=== PATIENT | female | born 1945 | race Caucasian/White ===

== ENCOUNTER 2016-09-12 13:28 | Emergency (ER) | payer MEDICARE, OTHER ==
[2016-09-12 14:38] LABS: BASOPHILS 0.1 %; BASOPHILS ABSOLUTE 0.01 10/3/uL (0.0-0.16); EOSINOPHILS 0.1 %; EOSINOPHILS ABSOLUTE 0.01 10/3/uL (0.0-0.53); ER CBC TAT 0 Hrs 11 Mins; HEMATOCRIT 35.7 % (36.0-48.0); HEMOGLOBIN 12.5 g/dL (12.0-16.0); IMMATURE GRANULOCYTES 0.1 %; IMMATURE GRANULOCYTES ABSOLUTE 0.01 10/3/uL (0.0-0.11); LYMPHOCYTES 12.9 %; LYMPHOCYTES ABSOLUTE 1.07 10/3/uL (0.67-4.30); MEAN CORPUSCULAR HEMOGLOB 32.6 pg (26.0-34.0); MEAN PLATELET VOLUME 10.4 fL (9.2-13.0); MONOCYTES 6.7 %; MONOCYTES ABSOLUTE 0.56 10/3/uL (0.21-1.20); NEUTROPHILS 80.1 %; NEUTROPHILS ABSOLUTE 6.65 10/3/uL (2.02-8.40); PLATELET COUNT 199 10/3/uL (150-400); RBC DISTRIBUTION WIDTH 12.7 % (12.0-16.0); RED CELL COUNT 3.83 10/6/uL (4.0-5.6); WHITE BLOOD CELLS 8.3 10/3/uL (4.5-10.5)
[2016-09-12 14:41] LABS: MANUAL DIFF NO %; MEAN CORPUSCULAR VOLUME 93.2 fL (80-100)
[2016-09-12 14:50] LABS: PROTIME (NOT ORD) 13.2 SEC (12.0-14.5)
[2016-09-12 15:01] LABS: A/G RATIO 0.8 (0.7-1.9); ALBUMIN 3.5 G/DL (3.5-5.0); ALKALINE PHOSPHATASE 126 U/L (45-117); BUN (BLOOD UREA NITROGEN) 39 MG/DL (6-23); CALCIUM, SERUM 10.1 MG/DL (8.5-10.4); CHLORIDE, SERUM 99 MMOL/L (96-112); CO2 (CARBON DIOXIDE) 30 MMOL/L (24-34); CREATININE 1.02 MG/DL (0.55-1.02); FREE T4 1.98 NG/DL (0.76-1.46); GFR AFRICAN AMERICAN 64 ML/MIN (>=60); GFR NON AFRICAN AMERICAN 55 ML/MIN (>=60); GLOBULIN 4.5 G/DL (2.5-4.1); GLUCOSE, SERUM 107 MG/DL (60-99); SGOT(AST) 31 U/L (5-40); SGPT(ALT) 39 U/L (5-65); SODIUM, SERUM 139 MMOL/L (135-148); TOTAL BILIRUBIN 0.3 MG/DL (0-1.2); ULTRASENSITIVE TSH 0.006 MCIU/ML (0.358-3.740)
[2016-09-12 15:08] LABS: POTASSIUM, SERUM 4.4 MMOL/L (3.5-5.3)
[2016-09-12 15:38] LABS: SEGMENTED NEUTROPHIL (0) 83 %; TOTAL NUCLEATED CELLS 100
[2016-09-12 15:39] LABS: ER DIFF TAT 1 Hrs 11 Mins; LYMPHOCYTES 8 %; LYMPHOCYTES ABSOLUTE (CALC) 0.66 10/3/uL (0.67-4.30); MONOCYTES 9 %; MONOCYTES ABSOLUTE (CALC) 0.75 10/3/uL (0.21-1.20); NEUTROPHILS ABSOLUTE (CALC) 6.89 10/3/uL (2.02-8.40); PLATELET ESTIMATE ADQ (ADEQUATE); RBC MORPHOLOGY NORM (NORMAL)
[2016-12-15] MEDS ORDERED: SPIRIVA INH (10:37)
[2016-12-15] MEDS ORDERED: ALBUTEROL0.083 % INH (10:38)
[2016-12-15] MEDS ORDERED: PERCOCET 10/3251 TAB PO (10:38)
[2016-12-15] MEDS ORDERED: LEVOTHYROXIN50 MCG PO (10:38)
[2016-12-15] MEDS ORDERED: PROAIR HFA INH (10:38)
[2016-12-15] MEDS ORDERED: BENICAR HCT1 TAB PO (10:38)
[2016-12-15] MEDS ORDERED: LOP50 PO (10:39)
[2016-12-15] MEDS ORDERED: PRIM50B PO (10:39)
[2017-01-12] MEDS ORDERED: MIRALAX POWDER1 PKT PO (09:56)
[2017-01-12] MEDS ORDERED: MYTAB GAS80 MG PO (09:57)
[2017-01-12] MEDS ORDERED: MSCONTIN PO (09:58)
[2017-01-12] MEDS ORDERED: BIST PO (09:59)
== END 2016-09-12 18:09 | disposition home or self-care (01) ==
LOC: ER 13:28
PROVIDERS: Emergency Medicine
DX: R22.0 Localized swelling, mass and lump, head (principal); E05.90 Thyrotoxicosis, unspecified without thyrotoxic crisis or storm; I10 Essential (primary) hypertension; J44.9 Chronic obstructive pulmonary disease, unspecified; Z85.3 Personal history of malignant neoplasm of breast
CPT/HCPCS: 70487; 71010; 71275; 80053; 84439; 84443; 85025; 85610; 93005; 99285